=== PATIENT | male | born 1935 ===

== ENCOUNTER → 2017-01-06 | Day surgery (SDC) | payer MEDICARE, OTHER ==
[~2017-01-06] MED LIST: IOHEXOL 180 MG/ML 20 ML VIAL (for RAD DIAG) ONE; LACTATED RINGER'S 1000 ML INJ 1,000 ML ONE; LIDOCAINE HCL 1% PF 30 ML VIAL ONE; MIDAZOLAM HCL 2 MG/2 ML VIAL ONE; PROPOFOL 100 MG/10 ML INJ IV ONE; TRIAMCINOLONE ACETONIDE 40 MG/ML VIAL ONE
--- NOTE | 2017-01-06 16:38 | TN ---
cc: EUNICE DAVE DATE OF OPERATION 01/06/2017 PREOPERATIVE DIAGNOSIS 1. Osteoarthritis left hip. 2. Arthrofibrosis left hip. POSTOPERATIVE DIAGNOSIS Same PROCEDURE 1. Manipulation left hip under anesthesia. 2. Arthrogram the left hip. 3. Injection of left hip with Depo-Medrol 40 mg. 4. Use of fluoroscopy for percutaneous guidance 5. Intraoperative x-ray left hip, two views, post arthrogram SURGEON Eunice Dave ANESTHESIA TIVA. BLOOD LOSS Minimal. INDICATION This is an 81-year-old male who developed severe onset of pain in the left hip that is that started in November of this year. The patient has had a history of chronic intermittent low back pain and treated before. He has been told he has osteoarthritis. The patient had a cyst significant pain that even conservative measures are not helping. The patient cannot take nonsteroidal anti-inflammatory medications because the bases had bypass surgery in the past. He has been so for injection with manipulation. PROCEDURE The patient brought to the operating room, evaluated. He was given limited sedation. The left hip was evaluated under fluoroscopy showing extensive arthritis. The range of motion of the left hip was extension zero, flexion 80 inches rotation 20 X rotation 30, abduction 20, adduction 10. Post manipulation flexion was 110 degrees extension 0 inches rotation 30 X rotation 40, abduction 38, adduction 20. The left hip was scrubbed alcohol followed by Hibiclens followed Chloraprep and draped sterilely. Under fluoroscopy a 22-gauge spinal needle was advanced down to the anterior aspect of the hip joint. Contrast was instilled showing evidence of loss of articular cartilage with mild lateral subluxation. There was some pitting and erosive changes but no cystic changes. No leak of contrast was seen. The hip was then injected with 40 mg of Depo-Medrol 3 cc of 1% lidocaine plain. The hip was run through second range of motion. Intraoperative x-rays were obtained. There was no evidence of a fracture. The patient was taken to the Recovery Room in satisfactory condition. Eunice Dave MD [facility] [place]/ /3:21 PM /3:29 PM
== END | disposition home or self-care (01) ==
LOC: ESDC 13:17
PROVIDERS: ATTEND Orthopaedic Surgery Orthopaedic Surgery of the Spine
DX: M24.652 Ankylosis, left hip (principal); M16.12 Unilateral primary osteoarthritis, left hip
CPT/HCPCS: 01200; 27275; 73502; J2250; J3010; J3301; J7120; Q9965